=== PATIENT | female | born 1955 | race Caucasian/White ===

== ENCOUNTER 2016-10-26 09:51 | Inpatient (IN) | payer OTHER ==
[~2016-10-26] VITALS: Ht 160 cm; Wt 80.9 kg
[2016-10-26 10:56] LABS: HEMATOCRIT 37.5 % (36.0-46.0); MCH 31.1 PG (29.0-34.0); MCHC 36.5 G/DL (30.0-36.0); MEAN PLAT.VOLUME 10.2 uM^3 (9.5-12.4); PLATELET COUNT 222 K/uL (156-360); RBC DIS.WIDTH-SD 37.4 % (39-53); RED BLOOD COUNT 4.41 M/uL (3.80-5.20); WHITE BLOOD COUNT 12.7 K/uL (4.1-10.2)
[2016-10-26 11:07] LABS: CHLORIDE 94 mEq/L (99-109); SODIUM 133 mEq/L (136-147)
[2016-10-26 11:09] LABS: GLUCOSE 126 mg/dL (70-99)
[2016-10-26 11:10] LABS: ANION GAP 14 MEQ/L (2-14)
[2016-10-26 11:13] LABS: GFR ESTIMATE (CALCULATED) > 59 mL/min/
[2016-10-26 11:14] LABS: POTASSIUM 2.3 mEq/L (3.7-5.4); UREA NITROGEN (BUN) 26 mg/dL (9-23)
[2016-10-26 11:54] LABS: ABS NEUTROPHIL COUNT 11.2; ATYPICAL LYMPHOCYTE 0.9 %; BAND NEUTROPHILS 6.9 % (0-8.0); EOSINOPHIL ABS CT 0.1; EOSINOPHILS 0.9 % (0-5.0); INSTRUMENT ABS NEUTROPHIL CT 10.5 K/uL; LYMPHOCYTES 4.3 % (15.0-45.0); PLAT.SUFFICIENCY ADEQUATE; POIKILOCYTOSIS 1+; SEG.NEUTROPHILS 80.9 % (46.0-76.0)
[2016-10-26] MEDS ORDERED: MICARDIS HCT1 TABLE2 PO (12:32)
[2016-10-26] MEDS ORDERED: SIMVASTATIN20 MG PO (12:32)
[2016-10-26] MEDS ORDERED: FLONASE16 G1 BOTH NARES (12:32)
[2016-10-26] MEDS ORDERED: ASPIR-LOW81 MG PO (12:34)
[2016-10-26] MEDS ORDERED: CALCIUM 500 MG1 EACH PO (12:34)
[2016-10-26 12:41] LABS: MAGNESIUM 1.9 mg/dL (1.3-2.7)
[2016-10-26 12:59] LABS: TROP-I INTERPRETATION POSITIVE
[2016-10-26 13:01] LABS: TROPONIN-I 1.91 ng/mL (0.0-0.30)
[2016-10-26 14:00] LABS: Estimated Average Glucose 111 mg/dL (70-123); HEMOGLOBIN A1c (GLYCOHEMOGLOB) 5.5 % HGB (Below 5.7)
[2016-10-26 14:13] LABS: HDL CHOLESTEROL 10 MG/DL (Desirable>=50); LDL CHOLESTEROL 51 mg/dL (Desirable<100); NON-HDL CHOLESTEROL 73 mg/dL (Desirable<160); TOTAL CHOLESTEROL 83 mg/dL (Desirable<200); TRIGLYCERIDES 110 MG/DL (Normal: <150)
[2016-10-26 14:58] LABS: INTER. NORMALIZED RATIO 1.2; PROTHROMBIN TIME 13.8 SEC (10.2-12.9)
[2016-10-26 18:05] VITALS: BP 119/68
[2016-10-26 19:05] VITALS: BP 109/56
[2016-10-26 19:24] LABS: SODIUM 138 mEq/L (136-147)
[2016-10-26 19:26] LABS: GLUCOSE 95 mg/dL (70-99)
[2016-10-26 19:28] LABS: ANION GAP 10 MEQ/L (2-14)
[2016-10-26 19:29] LABS: CHLORIDE 105 mEq/L (99-109); POTASSIUM 3.1 mEq/L (3.7-5.4)
[2016-10-26 19:30] LABS: GFR ESTIMATE (CALCULATED) > 59 mL/min/
[2016-10-26 19:31] LABS: UREA NITROGEN (BUN) 19 mg/dL (9-23)
[2016-10-26 19:36] LABS: TROP-I INTERPRETATION POSITIVE
[2016-10-26 19:39] LABS: TROPONIN-I 1.74 ng/mL (0.0-0.30)
[2016-10-27 00:32] VITALS: BP 100/60
[2016-10-27 01:40] LABS: TROP-I INTERPRETATION POSITIVE
[2016-10-27 01:42] LABS: TROPONIN-I 1.36 ng/mL (0.0-0.30)
[2016-10-27 04:10] VITALS: BP 109/58
[2016-10-27 06:35] LABS: ANION GAP 10 MEQ/L (2-14); GFR ESTIMATE (CALCULATED) > 59 mL/min/; GLUCOSE 100 mg/dL (70-99); POTASSIUM 3.7 MEQ/L (3.7-5.4); SAMPLE HEMOLYSIS CHECK 0; SAMPLE ICTERIC CHECK 0; SAMPLE LIPEMIA CHECK 0; SODIUM 134 MEQ/L (136-147); UREA NITROGEN (BUN) 11 mg/dL (9-23)
[2016-10-27 06:36] LABS: CHLORIDE 104 MEQ/L (99-109)
[2016-10-27 06:54] LABS: HEMATOCRIT 30.9 % (36.0-46.0); MCH 31.1 PG (29.0-34.0); MEAN PLAT.VOLUME 10.7 uM^3 (9.5-12.4); PLATELET COUNT 211 K/uL (156-360); RBC DIS.WIDTH-CV 12.6 % (11.8-14.6); RBC DIS.WIDTH-SD 40.9 % (39-53)
[2016-10-27 06:57] LABS: RED BLOOD COUNT 3.47 M/uL (3.80-5.20)
[2016-10-27 07:40] VITALS: BP 96/55
[2016-10-27 11:49] VITALS: BP 98/56
[2016-10-27 17:56] VITALS: BP 109/58
[2016-10-27 20:00] VITALS: BP 107/67
[2016-10-28] VITALS: BP 114/56
[2016-10-28 04:00] VITALS: BP 104/55
[2016-10-28 05:08] LABS: HEMATOCRIT 31.5 % (36.0-46.0); MCH 32.2 PG (29.0-34.0); MCHC 36.5 G/DL (30.0-36.0); MCV 88.2 FL (83-99); MEAN PLAT.VOLUME 10.1 uM^3 (9.5-12.4); PLATELET COUNT 236 K/uL (156-360); RBC DIS.WIDTH-CV 12.8 % (11.8-14.6); RBC DIS.WIDTH-SD 41.6 % (39-53); RED BLOOD COUNT 3.57 M/uL (3.80-5.20); WHITE BLOOD COUNT 12.8 K/uL (4.1-10.2)
[2016-10-28 05:34] LABS: ANION GAP 11 MEQ/L (2-14); CHLORIDE 103 MEQ/L (99-109); GFR ESTIMATE (CALCULATED) > 59 mL/min/; GLUCOSE 124 mg/dL (70-99); POTASSIUM 3.4 MEQ/L (3.7-5.4); SAMPLE HEMOLYSIS CHECK 0; SAMPLE ICTERIC CHECK 0; SAMPLE LIPEMIA CHECK 0; SODIUM 137 MEQ/L (136-147); UREA NITROGEN (BUN) 8 mg/dL (9-23)
[2016-10-28 07:37] VITALS: BP 97/54
[2016-10-28 09:24] LABS: ADD MIUA? YES; BILIRUBIN NEGATIVE; BLOOD SMALL; COLOR YELLOW ((YELLOW)); GLUCOSE (STRIP) NEGATIVE; KETONES NEGATIVE; LEUKOCYTES TRACE; NITRITE NEGATIVE; PROTEIN (STRIP) NEGATIVE; SPECIFIC GRAVITY 1.006 (1.000-1.030); UROBILINOGEN 0.2 MG/DL (0.2-1.0)
[2016-10-28 09:41] LABS: BACTERIA 2+ /HPF; EPITHELIAL CELLS RARE /HPF; HYALINE CASTS 0-5 /LPF; MUCUS NONE SEEN /LPF; RED BLOOD CELLS 20-30 /HPF (0-5); UCUL ADDED? YES
[2016-10-28] MEDS ORDERED: PRAVASTATIN SOD40 MG PO (11:15)
[2016-10-28] MEDS ORDERED: NICOTINE PATCH1 EAC2 TD (11:15)
[2016-10-28] MEDS ORDERED: LOPRESSOR25 MG PO (11:16)
[2016-10-28] MEDS ORDERED: BLOOD PRESSURE1 EA10 MC (11:17)
[2016-10-28 12:42] VITALS: BP 109/58
[2016-10-28] MEDS ORDERED: LEVAQUIN500 MG PO (13:23)
== END 2016-10-28 13:33 | disposition home or self-care (01) | DRG 281 ==
LOC: EME 09:51 → ENRESERV 12:06 → EDOF 12:06 → 4EAST 12:06 → ENRESERV 12:58 → CANRESERV 12:59 → EDOF 13:20 → ENRESERV 13:26 → 4EAST 17:43
PROVIDERS: Emergency Medicine; Internal Medicine
DX: I21.4 Non-ST elevation (NSTEMI) myocardial infarction (principal); E87.6 Hypokalemia; I50.20 Unspecified systolic (congestive) heart failure; I11.0 Hypertensive heart disease with heart failure; E78.5 Hyperlipidemia, unspecified; F17.200 Nicotine dependence, unspecified, uncomplicated; E87.1 Hypo-osmolality and hyponatremia; E86.0 Dehydration; I51.81 Takotsubo syndrome; E86.1 Hypovolemia; J40 Bronchitis, not specified as acute or chronic; D72.829 Elevated white blood cell count, unspecified; R19.7 Diarrhea, unspecified; I25.10 Atherosclerotic heart disease of native coronary artery without angina pectoris; I25.5 Ischemic cardiomyopathy; D64.9 Anemia, unspecified; K52.9 Noninfective gastroenteritis and colitis, unspecified; Z86.73 Personal history of transient ischemic attack (TIA), and cerebral infarction without residual deficits; Z79.82 Long term (current) use of aspirin; Z85.43 Personal history of malignant neoplasm of ovary; I25.2 Old myocardial infarction; Z79.899 Other long term (current) drug therapy
CPT/HCPCS: 36415; 71010; 80048; 80048 91; 80053; 80061; 81003; 82272; 83036; 83735; 84484; 85025; 85027; 85610; 85730; 87077; 87086; 87186; 87493; 93005; 93306; 99281; 99285; C1769; C1887; J1644; J2250; J3010; J3480; J7030; J7040; S0028